=== PATIENT | female | born 1995 | race Caucasian/White ===

== ENCOUNTER 2018-07-11 22:43 | Emergency (ER) | payer SELFPAY ==
--- NOTE | 2018-07-11 23:22 | ED Physician Documentation ---
Lower Extremity Problem - HPI Stated Complaint: "My right ankle hurts" Chief Complaint: Lower Extremity Problem Location of Injury: R ankle Onset: other (3 months ) Timing: still present Duration: intermittent episodes Recent Injury: No Severity: mild Quality: pain, tenderness Exacerbated By: walking, movement Relieved By: nothing - ROS CONST: no problems - PAST HX Past History: none Surgeries/Procedures: none Immunizations: UTD Allergies/Adverse Reactions: Allergies Allergy/AdvReac Type Severity Reaction Status Date / Time No Known Allergies Allergy Verified 11/30/12 14:54 Home Medications: Ambulatory Orders Medication Instructions Recorded NK 10/05/13 - SOCIAL HX Smoking History: non-smoker Alcohol Use: none Drug Use: none - FAMILY HX Family History: none - VITAL SIGNS Vital Signs: Vital Signs Temp Pulse Resp BP Pulse Ox 97.5 F L 67 12 112/62 99 07/11/18 23:38 07/11/18 23:38 07/11/18 23:38 07/11/18 23:38 07/11/18 23:38 - REVIEWED ASSESSMENTS Nursing Assessment Reviewed: Yes Vitals Reviewed: Yes ED Results Lab/Radiology - Radiology Radiology Impressions: Three views of the right ankle Clinical history: Pain for 3-4 months that is worsening. Findings: Examination of the right ankle in AP, lateral and oblique views fails to demonstrate evidence of fracture or dislocation. Small calcaneal spur is seen at site of insertion of the plantar aponeurosis. The ankle mortise is anatomic. There is slight flattening of the normal longitudinal arch of the foot. Impression: 1. Flattening of the normal longitudinal arch. 2. Small calcaneal spur. Electronically signed on Jul 11, 2018 11:33:37 PM CDT by: Ronnie Ryan - Orders Orders: ED Orders Category Date Time Status ANKLE 3 VIEWS OR MORE [RAD] Stat Exams 07/11/18 Ordered Lower Extremity Problem - EXAM General Appearance: no distress Ankle: right: bone tenderness, limited range of motion, pain, soft tissue tenderness, swelling, left: non-tender, normal inspection, normal range of motion, no evidence of injury, bilateral: deformity, ecchymosis Foot: N/A: non-tender, normal inspection, normal range of motion, no evidence of injury, abrasions/lacerations, bone tenderness, deformity, ecchymosis, infection, limited range of motion, nail injury, nodule, pain, soft tissue tenderness, swelling Neuro/Tendon: normal sensation, normal motor functions RESPIRATORY: no resp distress, chest non-tender, breath sounds normal CVS: reg rate & rhythm, heart sounds normal, equal pulses JOINT: joints nml, nml ROM VASCULAR: no vascular compromise NEURO/PSYCH: oriented X3, CN's nml as tested SKIN: warm/dry BACK: normal inspection Discharge Clincal Impression: Ankle pain, right Qualifiers: Chronicity: chronic Qualified Code(s): M25.571 - Pain in right ankle and joints of right foot Referrals: Jamar Slater MD [Primary Care Provider] - 2 Days Additional Instructions: 1. Tylenol or Ibuprofen as directed as needed for pain 2. Ice or elevate as needed for pain relief 3. Follow up with PCP in 2-4 days for chronic ankle pain 4. Return to ER for concerns Condition: Stable Disposition: 01 HOME, SELF-CARE Decision to Admit: NO Date of Decison to Admit: 07/11/18 Decision Time: 23:41
[2018-07-11 23:41] VITALS: BP 112/62
--- NOTE | 2018-07-12 07:00 | Diagnostic Imaging Report ---
FERNANDA MCGRATH [facility] [address] [facility].[address] [address] Report Submission Date: Jul 11, 2018 11:33:37 PM CDT Patient Study Name: CASSIUS BERNSTEIN Date: Jul 11, 2018 11:16:37 PM CDT Modality Type: DX Gender: F Description: LOWER EXTREMITY : 89 Institution: [facility] Physician: FERNANDA MCGRATH Three views of the right ankle Clinical history: Pain for 3-4 months that is worsening. Findings: Examination of the right ankle in AP, lateral and oblique views fails to demonstrate evidence of fracture or dislocation. Small calcaneal spur is seen at site of insertion of the plantar aponeurosis. The ankle mortise is anatomic. There is slight flattening of the normal longitudinal arch of the foot. Impression: 1. Flattening of the normal longitudinal arch. 2. Small calcaneal spur. Electronically signed on Jul 11, 2018 11:33:37 PM CDT by: Ronnie JUNG
== END 2018-07-11 23:45 | disposition home or self-care (01) ==
LOC: ED 22:43
DX: M25.571 Pain in right ankle and joints of right foot (principal)
CPT/HCPCS: 73610; 99282